=== PATIENT | male | born 1975 | race Caucasian/White ===

== ENCOUNTER 2018-03-18 16:01 | Inpatient (IN) | payer BC ==
[~2018-03-18] VITALS: Ht 152.4 cm; Wt 90.5 kg
[2018-03-18 16:47] LABS: HEMATOCRIT 41.6 % (38.0-50.0); HEMOGLOBIN 14.8 G/DL (12.5-16.6); MCH 32.3 PG (29.0-34.0); MCHC 35.6 G/DL (30.0-36.0); MCV 90.8 FL (86-99); PLATELET COUNT 231 K/uL (156-360); RBC DIS.WIDTH-CV 11.9 % (11.8-14.6); RBC DIS.WIDTH-SD 39.4 % (39-53); RED BLOOD COUNT 4.58 M/uL (4.00-5.50); WHITE BLOOD COUNT 17.8 K/uL (4.1-10.2)
[2018-03-18 17:00] LABS: CHLORIDE 103 mEq/L (99-109); POTASSIUM 4.4 mEq/L (3.7-5.4); SODIUM 140 mEq/L (136-147)
[2018-03-18 17:02] LABS: GLUCOSE 99 mg/dL (70-99)
[2018-03-18 17:06] LABS: CREATININE 1.3 mg/dL (0.6-1.3); GFR ESTIMATE (CALCULATED) > 59 mL/min/ (58.99-99999)
[2018-03-18 17:07] LABS: UREA NITROGEN (BUN) 16 mg/dL (9-23)
[2018-03-18 17:24] LABS: APPEARANCE CLEAR ((CLEAR)); BILIRUBIN SMALL; BLOOD NEGATIVE; COLOR AMBER ((YELLOW)); GLUCOSE (STRIP) NEGATIVE; KETONES 5; LEUKOCYTES NEGATIVE; NITRITE NEGATIVE; PROTEIN (STRIP) 100; SPECIFIC GRAVITY 1.041 (1.000-1.030)
[2018-03-18 17:39] LABS: ALBUMIN 4.3 g/dL (3.2-4.8)
[2018-03-18 17:42] LABS: TOTAL PROTEIN 8.1 g/dL (6.4-8.3)
[2018-03-18 17:44] LABS: TOTAL BILIRUBIN 1.1 mg/dL (0.0-1.0)
[2018-03-18 17:45] LABS: ALKALINE PHOSPHATASE 77 IU/L (3-129)
[2018-03-18 17:47] LABS: AST (GOT) 16 IU/L (2-34); DIRECT BILIRUBIN 0.5 mg/dL (0.0-0.3)
[2018-03-18 17:48] LABS: ALT (GPT) 19 IU/L (3-49); LIPASE 19 U/L (1.0-51.0)
[2018-03-18 17:53] LABS: BACTERIA RARE /HPF; EPITHELIAL CELLS RARE /HPF; MUCUS 2+ /LPF; UCUL ADDED? NO; WHITE BLOOD CELLS 0-5 /HPF (0-5)
[2018-03-18] MEDS ORDERED: ADVIL,NUPRIN,M200 MG PO (19:03)
[2018-03-18] MEDS ORDERED: TYLENOL EXTRA500 MG PO (19:04)
[2018-03-18 22:01] VITALS: BP 122/64
[2018-03-19 06:11] LABS: HEMATOCRIT 36.2 % (38.0-50.0); MCH 31.3 PG (29.0-34.0); MCHC 33.7 G/DL (30.0-36.0); MCV 92.8 FL (86-99); PLATELET COUNT 227 K/uL (156-360); RBC DIS.WIDTH-CV 11.9 % (11.8-14.6); RBC DIS.WIDTH-SD 40.6 % (39-53); WHITE BLOOD COUNT 11.1 K/uL (4.1-10.2)
[2018-03-19 06:17] LABS: CHLORIDE 103 MEQ/L (99-109); CREATININE 1.1 MG/DL (0.6-1.3); GFR ESTIMATE (CALCULATED) > 59 mL/min/ (58.99-99999); GLUCOSE 108 mg/dL (70-99); HDL CHOLESTEROL 25 MG/DL (Desirable>=40); LDL CHOLESTEROL 75 mg/dL (Desirable<100); NON-HDL CHOLESTEROL 100 mg/dL (Desirable<160); POTASSIUM 4.1 MEQ/L (3.7-5.4); SODIUM 137 MEQ/L (136-147); TOTAL CHOLESTEROL 125 mg/dL (Desirable<200); TRIGLYCERIDES 126 MG/DL (Normal: <150); UREA NITROGEN (BUN) 10 mg/dL (9-23)
[2018-03-19 06:18] LABS: HEMOGLOBIN 12.2 G/DL (12.5-16.6)
[2018-03-19 07:05] VITALS: BP 117/60
[2018-03-19 19:30] VITALS: BP 112/69
[2018-03-19 22:16] LABS: C DIFF TOXIN NEGATIVE (NEGATIVE)
[2018-03-19 23:56] VITALS: BP 117/69
[2018-03-20] VITALS (7 sets, daily range): BP systolic 112–121; BP diastolic 58–75
[2018-03-20 06:40] LABS: HEMATOCRIT 36.7 % (38.0-50.0); HEMOGLOBIN 12.3 G/DL (12.5-16.6); MCH 31.1 PG (29.0-34.0); MCHC 33.5 G/DL (30.0-36.0); MCV 92.7 FL (86-99); PLATELET COUNT 250 K/uL (156-360); RBC DIS.WIDTH-CV 11.9 % (11.8-14.6); RBC DIS.WIDTH-SD 40.1 % (39-53); RED BLOOD COUNT 3.96 M/uL (4.00-5.50); WHITE BLOOD COUNT 7.2 K/uL (4.1-10.2)
[2018-03-20 07:07] LABS: CHLORIDE 106 MEQ/L (99-109); CREATININE 0.8 MG/DL (0.6-1.3); GFR ESTIMATE (CALCULATED) > 59 mL/min/ (58.99-99999); GLUCOSE 115 mg/dL (70-99); SODIUM 142 MEQ/L (136-147); UREA NITROGEN (BUN) 5 mg/dL (9-23)
[2018-03-21 03:42] VITALS: BP 134/80
[2018-03-21 06:41] LABS: HEMATOCRIT 39.3 % (38.0-50.0); HEMOGLOBIN 13.3 G/DL (12.5-16.6); MCH 31.1 PG (29.0-34.0); MCHC 33.8 G/DL (30.0-36.0); PLATELET COUNT 295 K/uL (156-360); RBC DIS.WIDTH-CV 11.7 % (11.8-14.6); RBC DIS.WIDTH-SD 39.7 % (39-53); RED BLOOD COUNT 4.27 M/uL (4.00-5.50); WHITE BLOOD COUNT 7.8 K/uL (4.1-10.2)
[2018-03-21 06:57] LABS: CHLORIDE 105 MEQ/L (99-109); CREATININE 0.9 MG/DL (0.6-1.3); GFR ESTIMATE (CALCULATED) > 59 mL/min/ (58.99-99999); GLUCOSE 98 mg/dL (70-99); POTASSIUM 4.5 MEQ/L (3.7-5.4); SODIUM 142 MEQ/L (136-147); UREA NITROGEN (BUN) 6 mg/dL (9-23)
[2018-03-21 07:18] VITALS: BP 135/72
[2018-03-21] MEDS ORDERED: BACTRIM,SEPT1 TABLET PO (09:26)
[2018-03-21] MEDS ORDERED: OXYCODONE HCL5 MG PO (09:26)
[2018-03-21] MEDS ORDERED: FLAGYL500 MG PO (09:26)
== END 2018-03-21 11:34 | disposition home or self-care (01) | DRG 392 ==
LOC: EME 16:01 → EDOF 20:09 → 5EAST 20:09 → ENRESERV 21:00 → 5EAST 21:47
PROVIDERS: Surgery
DX: K57.20 Diverticulitis of large intestine with perforation and abscess without bleeding (principal); E86.0 Dehydration; M47.816 Spondylosis without myelopathy or radiculopathy, lumbar region; M43.10 Spondylolisthesis, site unspecified; K76.89 Other specified diseases of liver; M48.07 Spinal stenosis, lumbosacral region; Z87.891 Personal history of nicotine dependence; Z82.3 Family history of stroke; Z80.1 Family history of malignant neoplasm of trachea, bronchus and lung; Z80.3 Family history of malignant neoplasm of breast; Z80.0 Family history of malignant neoplasm of digestive organs; Z87.442 Personal history of urinary calculi
CPT/HCPCS: 74177; 80048; 80061; 80076; 81003; 83605; 83690; 85027; 87040; 87493; 87506; 93005; 99281; 99285; J0744; J1170; J1650; J2405; J3010; J7030; S0030; S0074